=== PATIENT | female | born 1945 | race African-American/Black ===

== ENCOUNTER 2020-09-27 03:30 | Observation (INO) | payer MEDICARE ==
[2020-09-27] MEDS ORDERED: Furosemide 40 MG/4 ML VIAL ONE (03:44)
[2020-09-27 04:21] LABS: Hemoglobin 8.8 g/dL (12.0-15.5); Mean Corpuscular HGB CONC 29.5 g/dL (32.0-36.0); Mean Corpuscular Hemoglobin 23.2 pg (27.0-33.0); Mean Corpuscular Volume 78.6 fl (81.6-98.3); Mean Platelet Volume 10.9 fl (7.4-10.4); Platelet Count 287 10x3/uL (150-450); RBC Distribution Width 18.6 % (11.5-14.5); Red Blood Cell (RBC) Count 3.79 10x6/uL (3.90-5.03); White Blood Cell (WBC) Count 9.4 10x3/uL (3.5-10.5)
[2020-09-27 04:33] LABS: AST (SGOT) 18 U/L (5-34); Albumin 3.6 g/dL (3.4-4.8); Anion Gap 15 mmol/L (10-20); Bilirubin, Total 0.4 mg/dL (0.2-1.2); Calc. Creatinine Clearance 0 mL/min (70-130); Calcium 9.1 mg/dL (7.8-10.44); Carbon Dioxide 28 mmol/L (23-31); Chloride 106 mmol/L (98-107); Globulin 3.6 g/dL (2.4-3.5); Glucose 112 mg/dL (83-110); Potassium 4.5 mmol/L (3.5-5.1); Protein, Total 7.2 g/dL (5.8-8.1); Sodium 144 mmol/L (136-145)
[2020-09-27 04:42] LABS: #Basophils 0.1 10x3/uL (0.0-0.2); #Eosinphils 0.2 10x3/uL (0.0-0.5); #Monocytes 0.5 10x3/uL (0.0-1.1); #Neutrophils 7.3 10x3/uL (1.5-8.4); %Basophils 0.6 % (0.0-2.0); %Eosinophils 2.5 % (0.0-6.0); %Lymphocytes 13.1 % (18.0-47.0); %Monocytes 5.7 % (0.0-10.0); %Neutrophils 77.7 % (40.0-75.0)
[2020-09-27 04:45] LABS: Bite Cells SLIGHT = 2-5 cells (100X) (0-1/hpf); Elliptocytes SLIGHT = 2-5 cells (100X) (0-1/hpf); Helmet Cells SLIGHT = 2-5 cells (100X) (0-1/hpf); Platelet Morphology Comment Appears Adequate; Target Cells SLIGHT = 2-5 cells (100X) (0-1/hpf)
[2020-09-27 04:46] LABS: Anisocytosis SLIGHT = 6-15 cells (100X) (0-5/hpf); Hypochromia SLIGHT = 6-15 cells (100X) (0-5/hpf); Poikilocytosis SLIGHT = 6-15 cells (100X) (0-5/hpf)
[2020-09-27 04:49] LABS: Basophilic Stippling SLIGHT = 1-2 cells (100X) (None Seen)
[2020-09-27 04:53] LABS: ALT (SGPT) 13 U/L (8-55); Alkaline Phosphatase 80 U/L (40-110); BUN (Urea Nitrogen) 11 mg/dL (9.8-20.1)
[2020-09-27 05:18] LABS: SARS-CoV-2 NAA Rapid Test Not Detected (NotDetected)
[2020-09-27] MEDS ORDERED: Ondansetron ODT 4 MG TAB PO PRN (07:24)
[2020-09-27] MEDS ORDERED: Acetaminophen 325 MG TAB PO PRN (07:24)
[2020-09-27] MEDS: Enoxaparin Sodium 40 MG/0.4 ML SYRINGE SC SCH (09:20)
[2020-09-27] MEDS: Famotidine 20 MG TAB PO SCH ×2 (09:20→20:27)
[2020-09-27] MEDS ORDERED: Losartan Potassium 50 MG TAB PO SCH (09:30)
[2020-09-27] MEDS ORDERED: Aspirin 81 mg Enteric Coated Tablet PO SCH (09:30)
[2020-09-27] MEDS ORDERED: Gabapentin 300 MG CAP PO SCH ×3 (09:30→21:00)
[2020-09-27] MEDS ORDERED: CeleCOXIB 100 MG CAP PO SCH (09:30)
[2020-09-27] MEDS ORDERED: Amlodipine 10 MG TAB PO SCH (09:30)
[2020-09-27] MEDS: Furosemide 40 MG/4 ML VIAL SLOW IVP SCH (14:41)
[2020-09-27] MEDS: Gabapentin 300 MG CAP PO SCH (15:31)
[2020-09-27] MEDS ORDERED: Dextrose 5% in Water 1,000 ML IV PRN (16:50)
[2020-09-27] MEDS ORDERED: HumaLOG 300 UNITS/3 ML VIAL SC PRN (16:50)
[2020-09-27] MEDS ORDERED: Dextrose 50% Abboject 50 ML SYRINGE SLOW IVP PRN (16:50)
[2020-09-27] MEDS ORDERED: Atorvastatin Calcium 20 MG TAB PO SCH (21:00)
[2020-09-28] MEDS ORDERED: Levothyroxine Sodium 50 MCG TAB PO SCH (06:00)
[2020-09-28] MEDS: Furosemide 40 MG/4 ML VIAL SLOW IVP SCH ×2 (06:03→13:58)
[2020-09-28 06:13] LABS: Anion Gap 14 mmol/L (10-20); BUN (Urea Nitrogen) 14 mg/dL (9.8-20.1); Calc. Creatinine Clearance 123 mL/min (70-130); Calcium 8.8 mg/dL (7.8-10.44); Carbon Dioxide 27 mmol/L (23-31); Chloride 107 mmol/L (98-107); Glucose 91 mg/dL (83-110); Magnesium 1.9 mg/dL (1.6-2.6); Potassium 3.6 mmol/L (3.5-5.1); Sodium 144 mmol/L (136-145)
[2020-09-28 06:33] LABS: #Basophils 0.1 10x3/uL (0.0-0.2); #Eosinphils 0.4 10x3/uL (0.0-0.5); #Monocytes 0.6 10x3/uL (0.0-1.1); %Basophils 0.9 % (0.0-2.0); %Eosinophils 6.2 % (0.0-6.0); %Lymphocytes 29.7 % (18.0-47.0); %Monocytes 9.9 % (0.0-10.0); %Neutrophils 52.9 % (40.0-75.0); Hemoglobin 8.2 g/dL (12.0-15.5); Mean Corpuscular Volume 79.5 fl (81.6-98.3); Mean Platelet Volume 11.6 fl (7.4-10.4); Platelet Count 267 10x3/uL (150-450); RBC Distribution Width 18.6 % (11.5-14.5); Red Blood Cell (RBC) Count 3.56 10x6/uL (3.90-5.03); White Blood Cell (WBC) Count 5.7 10x3/uL (3.5-10.5)
[2020-09-28 06:48] LABS: Anisocytosis SLIGHT = 6-15 cells (100X) (0-5/hpf); Hypochromia SLIGHT = 6-15 cells (100X) (0-5/hpf); Macrocytosis SLIGHT = 6-15 cells (100X) (0-5/hpf); Microcytosis SLIGHT = 6-15 cells (100X) (0-5/hpf); Poikilocytosis SLIGHT = 6-15 cells (100X) (0-5/hpf); Schistocytes SLIGHT = 2-5 cells (100X) (0-1/hpf)
[2020-09-28 06:49] LABS: Target Cells SLIGHT = 2-5 cells (100X) (0-1/hpf)
[2020-09-28 06:57] VITALS: BMI 34.5
[2020-09-28] MEDS: Enoxaparin Sodium 40 MG/0.4 ML SYRINGE SC SCH (08:46)
[2020-09-28] MEDS: Famotidine 20 MG TAB PO SCH (08:46)
[2020-09-28] MEDS: Gabapentin 300 MG CAP PO SCH ×2 (08:46→14:54)
[2020-09-28] MEDS ORDERED: Amlodipine 10 MG TAB PO SCH (09:00)
[2020-09-28] MEDS ORDERED: Losartan Potassium 50 MG TAB PO SCH (09:00)
[2020-09-28] MEDS ORDERED: CeleCOXIB 100 MG CAP PO SCH (09:00)
[2020-09-28] MEDS ORDERED: Aspirin 81 mg Enteric Coated Tablet PO SCH (09:00)
[2020-09-28 17:23] VITALS: BP 129/72; TEMP 98.1
[2020-09-29] MEDS ORDERED: Furosemide 40 MG TAB PO SCH (09:00)
== END 2020-09-28 18:15 | disposition home or self-care (01) ==
LOC: CSHERS 03:30 → CSHICU 05:30 → INTOOBSV 05:30 → CSHTELE 14:39
PROVIDERS: ADMIT Internal Medicine; ATTEND Family Medicine
DX: I11.0 Hypertensive heart disease with heart failure (principal); I50.33 Acute on chronic diastolic (congestive) heart failure; I25.10 Atherosclerotic heart disease of native coronary artery without angina pectoris; Z79.899 Other long term (current) drug therapy; Z79.82 Long term (current) use of aspirin; Z79.84 Long term (current) use of oral hypoglycemic drugs; I73.9 Peripheral vascular disease, unspecified; E11.9 Type 2 diabetes mellitus without complications; E78.5 Hyperlipidemia, unspecified; D64.9 Anemia, unspecified; Z20.822 Contact with and (suspected) exposure to COVID-19
CPT/HCPCS: 0240U; 71045; 80048; 82962 ×2; 83735; 83880; 84484; 85025; 93005; 93306; 94640; 94660; 94760 ×3; 96374; 97116; 97139 ×3; 99285; 36415; 36416; 80053; 84443; 93010; J1650; J1940; J7620